=== PATIENT | male | born 1965 | race Caucasian/White ===

== ENCOUNTER 2021-04-10 15:47 | Outpatient (CLI) | payer MEDICAID, OTHER ==
[~2021-04-10 15:47] MED LIST: CETI10TA18 PO; HYDROCHLOROTH12.5 MG PO
[2021-04-10] MEDS ORDERED: TRELEGY INH (16:15)
[2021-04-10] MEDS ORDERED: ALBUTEROL INH (16:15)
[2021-04-10] MEDS ORDERED: ATOR20TA37 PO (16:15)
[2021-04-10] MEDS ORDERED: OMEG100023 PO (16:15)
[2021-04-10] MEDS ORDERED: ONDA4TAB13 SL (16:15)
[2021-04-10] MEDS ORDERED: MONT10TA17 PO (16:15)
[2021-04-10] MEDS ORDERED: NORT25CA78 PO (16:15)
[2021-04-10 16:44] LABS: ALANINE AMINOTRANSFERASE 30 U/L (12-78); ALBUMIN 3.5 g/dL (3.4-5.0); ANION GAP 5 mmol/L (5-15); CALCIUM 9.2 mg/dL (8.5-10.1); CHLORIDE 107 mmol/L (98-107); CREATININE 1.51 mg/dL (0.7-1.3)
[2021-04-10 16:46] LABS: ALKALINE PHOSPHATASE 79 U/L (45-117); BILIRUBIN,TOTAL 1.2 mg/dL (0.2-1.0); TOTAL PROTEIN 6.8 g/dL (6.4-8.2)
== END 2021-04-10 23:59 | disposition home or self-care (01) ==
LOC: STAR 15:47
PROVIDERS: ATTEND Otolaryngology
DX: Z01.818 Encounter for other preprocedural examination (principal); J32.4 Chronic pansinusitis; J34.2 Deviated nasal septum
CPT/HCPCS: 36415; 80053; 93005

== ENCOUNTER 2021-04-17 08:30 | Day surgery (SDC) | payer OTHER ==
[~2021-04-17] VITALS: Ht 182.9 cm; Wt 82.2 kg
[~2021-04-17 08:30] MED LIST changes: +ALBUTEROL INH; +ATOR20TA37 PO; +BACITRACIN OINT 500U/GM, 15 GM ONE; +EPINEPHRINE 1 MG/ML, 1ML ONE; +EPINEPHRINE TOPICAL SOLN 1 MG/ML, 30ML ONE; +FLUORESCEIN SODIUM 500 MG/5 ML ONE; +LIDOCAINE/PF 1%, 30ML ONE; +MONT10TA17 PO; +NORT25CA78 PO; +OMEG100023 PO; +ONDA4TAB13 SL; +OXYMETAZOLINE NASAL SPRAY 0.05%,30ML ONE; +TRELEGY INH
[2021-04-17 09:10] VITALS: BP 126/81
[2021-04-17] MEDS ORDERED: LACTATED RINGERS 1,000 ML IV SCH (09:30)
[2021-04-17] MEDS ORDERED: PLEASE ENTER ALLERGIES MC SCH (09:30)
[2021-04-17] MEDS ORDERED: CHLORHEXIDINE 15 ML UDC PO ONE (09:30)
[2021-04-17] MEDS ORDERED: MIDAZOLAM 1 MG/ML, 2ML ONE (10:28)
[2021-04-17] MEDS ORDERED: FENTANYL PF 250 MCG/5ML ONE (10:28)
[2021-04-17] MEDS ORDERED: PROPOFOL 10 MG/ML, 20ML ONE (10:56)
[2021-04-17] MEDS ORDERED: ROCURONIUM 10 MG/ML,10ML ONE (10:56)
[2021-04-17] MEDS ORDERED: CEFAZOLIN 1,000 MG ONE (10:56)
[2021-04-17] MEDS ORDERED: DEXAMETHASONE 4 MG/ML, 1ML ONE (10:56)
[2021-04-17] MEDS ORDERED: ONDANSETRON 2MG/ML, 2ML ONE (10:56)
[2021-04-17] MEDS ORDERED: SUCCINYLCHOLINE 20 MG/ML, 10ML ONE (10:56)
[2021-04-17] MEDS ORDERED: METOCLOPRAMIDE 5 MG/ML, 2ML ONE (13:28)
[2021-04-17] MEDS ORDERED: HYDROmorphone 1 MG/ML, 1ML INJ IV PRN (13:30)
[2021-04-17] MEDS ORDERED: OXYcodone 5 MG/5 ML ORAL.SOL UDC PO PRN (13:30)
[2021-04-17] MEDS ORDERED: PROMETHAZINE 25 MG/ML, 1ML IV PRN (13:30)
[2021-04-17] MEDS ORDERED: FENTANYL PF 100 MCG/2ML IV PRN (13:30)
[2021-04-17] MEDS ORDERED: METOCLOPRAMIDE 5 MG/ML, 2ML IV PRN (13:30)
[2021-04-17] MEDS ORDERED: MEPERIDINE/PF 25MG/0.5ML IVPush PRN (13:30)
[2021-04-17] MEDS ORDERED: LABETALOL 5MG/ML, 20ML IV PRN (13:30)
[2021-04-17] MEDS ORDERED: ONDANSETRON 2MG/ML, 2ML IVPush PRN (13:30)
[2021-04-17] MEDS ORDERED: ALBUTEROL SULFATE 2.5 MG/3 ML NPPB PRN (13:30)
[2021-04-17] MEDS ORDERED: DIAZEPAM 5 MG/ML, 2ML IV PRN ×2 (13:30)
[2021-04-17] MEDS ORDERED: hydrALAzine 20 MG/ML, 1ML IV PRN (13:30)
[2021-04-17] MEDS ORDERED: KETOROLAC 30 MG/1 ML IV PRN (13:30)
[2021-04-17] MEDS ORDERED: HYDROcodone/APAP 5/325 TABLET ONE (14:55)
[2021-04-17] MEDS ORDERED: HYDROcodone/APAP 5/325 TABLET PO ONE (15:00)
== END 2021-04-17 15:45 | disposition home or self-care (01) ==
LOC: OUT 08:30
PROVIDERS: ATTEND Otolaryngology
DX: J32.4 Chronic pansinusitis (principal); J33.8 Other polyp of sinus; J34.2 Deviated nasal septum; R43.0 Anosmia; I10 Essential (primary) hypertension; J44.9 Chronic obstructive pulmonary disease, unspecified; Z79.899 Other long term (current) drug therapy
CPT/HCPCS: 30520; 31253; 31259; 31267; 87070; 87075; 87205; 88304; 88311; J0171; J2250; J2765; J3010; J7120; 87076; J0690; J1100; J2405; J2704; J0330

== ENCOUNTER 2021-04-24 13:43 | Day surgery (SDC) | payer OTHER ==
[~2021-04-24 13:43] MED LIST changes: -BACITRACIN OINT 500U/GM, 15 GM ONE; -EPINEPHRINE 1 MG/ML, 1ML ONE; -EPINEPHRINE TOPICAL SOLN 1 MG/ML, 30ML ONE; -FLUORESCEIN SODIUM 500 MG/5 ML ONE; -LIDOCAINE/PF 1%, 30ML ONE; -OXYMETAZOLINE NASAL SPRAY 0.05%,30ML ONE
[2021-04-24] MEDS ORDERED: LIDOCAINE 2% 100MG/5ML SYRINGE IVPush ONE (15:32)
[2021-04-24] MEDS ORDERED: LIDOCAINE 4%, 4 ML SYR/CANN TP ONE (15:46)
[2021-04-24] MEDS ORDERED: OXYMETAZOLINE NASAL SPRAY 0.05%,30ML ONE (15:46)
== END 2021-04-24 15:48 | disposition home or self-care (01) ==
LOC: OR 13:43
PROVIDERS: ATTEND Otolaryngology
DX: J32.4 Chronic pansinusitis (principal); J34.2 Deviated nasal septum; Z20.822 Contact with and (suspected) exposure to COVID-19
CPT/HCPCS: 87635